=== PATIENT | female | born 1930 | race Caucasian/White ===

== ENCOUNTER 2016-06-17 08:54 | Emergency (ER) | payer OTHER ==
[2016-06-17] MEDS ORDERED: NS 1,000 ML IV ONE (09:27)
--- NOTE | 2016-06-17 09:29 | ED EKG INTERP ---
EKG Interpretation - EKG Time of EKG reading by physician:: 09:08 EKG Read and Signed by:: Hernandez Duvall EKG Interpretation (*Must complete 3 of following elements*): Normal Rate: 74 Rhythm: NSR Attestation - Scribe Verification/Attestation Scribe:: Nancy Davis Acting as Scribe for:: Hernandez Duvall Scribe documention review:: This chart was documented by a scribe and accurately reflects the service the provider performed and the decisions made by the provider.
--- NOTE | 2016-06-17 10:18 | PROVIDER DOCUMENTATION ---
Addendum entered and electronically signed by Hernandez Duvall MD 06/17/16 14:14: Additional Progress - ADDITIONAL PLAN OF CARE/RESULTS Additional Progress/Plan/Lab Results: I had lengthy discussion with pt for her CT reports regarding the b/l lacunar infarcts compared to 12/25 scan. I offered admission, but pt and son declined. Pt has no focal weakness and her dizziness resolving. Pt wants to go home and son mad an appointment with PCP before leaving ER. Pt was instructed to RTED if any worsening. Original Note: HPI-Syncope/Dizziness - General Source: patient, family - History of Present Illness-Syncope/Dizzy Recently Seen Here or By Another Healthcare Provider: No <Nancy Davis - Last Filed: 06/17/16 10:13> <Hernandez Duvall - Last Filed: 06/17/16 13:39> - General Chief Complaint: Dizziness Stated Complaint: DIZZINESS,NAUSEA,CANT WALK Time Seen by Provider: 06/17/16 09:04 Allergies/Adverse Reactions: Patient Allergies Allergy/AdvReac Type Severity Reaction Status Date / Time No Known Allergies Allergy Verified 06/17/16 10:29 Home Medications: Amlodipine [Norvasc] 10 mg PO DAILY 01/22/13 Carbamazepine Chew [Tegretol] 100 mg PO WLUNCH 01/22/13 Carbamazepine [Tegretol] 200 mg PO BID 01/22/13 Multivitamin [Multivitamins] 1 each PO DAILY 01/22/13 Omeprazole [Prilosec] 20 mg PO DAILY@0700 01/22/13 Simvastatin [Zocor] 20 mg PO QHS 01/22/13 Vitamin E 400 unit PO DAILY 01/22/13 - History of Present Illness-Syncope/Dizzy Nature of Presenting Problem: Pt is a 86 yof who came to the ED with a cc of dizziness. Pt reports she woke up this morning feeling dizzy and sick to her stomach. Pt reports she was unable to walk. Pt reports yesterday she was able to walk, cook, and drive. Pt has muscles spasms in her neck. Pt reports she is having neck pain. (Nancy Davis) Review of Systems - Adult - REVIEW OF SYSTEMS - ADULT Constitutional: denies: chills, fever Eyes: reports: no symptoms reported Ears, Nose, Mouth & Throat: denies: sinus problem, loose teeth Cardiovascular: reports: no symptoms reported Respiratory: denies: pleurisy, wheezing Gastrointestinal: reports: nausea. denies: abdominal pain, hematemesis, vomiting Genitourinary: reports: no symptoms reported Musculoskeletal: reports: no symptoms reported Integumentary: reports: no symptoms reported Neurological: reports: dizziness/vertigo, loss of balance. denies: paresthesia , slurred speech Psychiatric: denies: panic attacks, suicidal thoughts Endocrine: reports: no symptoms reported Hematologic/Lymphatic: reports: no symptoms reported Allergic/Immunologic: reports: no symptoms reported All Other Systems: Reviewed and Negative <Nancy Davis - Last Filed: 06/17/16 10:13> Past History - Adult - PAST MEDICAL HISTORY-ADULT Review of Records: reports: Old Records Reviewed, Nursing Assessment Review Major Childhood Illnesses: reports: denies history Cardiovascular: reports: HTN, hyperlipidemia Respiratory: reports: denies history Gastrointestinal: reports: GERD Obstetrical/Gynecological: reports: denies history Genitourinary: reports: denies history Musculoskeletal: reports: denies history Neurological: reports: denies history Endocrine/Immune: reports: denies history Other Conditions: reports: denies history - IMMUNIZATION STATUS Childhood Immunizations: See Nurse Assessment Flu Vaccine: See Nurse Assessment - FAMILY HISTORY Family History: reviewed, not pertinent <Nancy Davis - Last Filed: 06/17/16 10:13> Physical Exam-General - PHYSICAL EXAM-ADULT Initial Vital Signs Reviewed: Yes - CONSTITUTIONAL General Appearance: appears well, alert, no apparent distress - EYES Eyes: PERRL/EOMI, pink conjunctivae - HEAD, EARS, NOSE, MOUTH & THROAT HENMT: normocephalic/atraumatic, moist mucous membranes, normal ENT inspection - NECK Neck: non-tender, full range of motion, normal inspection - RESPIRATORY Respiratory: chest non-tender, lungs clear, normal breath sounds - CARDIOVASCULAR Cardiovascular: normal peripheral pulses, regular rate, rhythm, no edema - GASTROINTESTINAL (ABDOMEN) Abdominal Exam: normal bowel sounds, non tender, soft - LYMPHATIC Lymphatic: no adenopathy - MUSCULOSKELETAL Back Exam: normal inspection, no CVA tenderness, no vertebral tenderness Extremity: normal range of motion, non-tender, normal gait - SKIN Integumentary: normal color, normal turgor, warm/dry - NEUROLOGIC Neurologic: grossly normal, no motor/sensory deficits - PSYCHIATRIC Psych/Mental Status: normal mood/affect, normal thought content, normal thought process, oriented x 3 <Nancy Davis - Last Filed: 06/17/16 10:13> Progress <Nancy Davis - Last Filed: 06/17/16 10:13> - REASSESSMENT Reassessment #1 Status: improving <Hernandez Duvall X - Last Filed: 06/17/16 13:39> - PLAN OF CARE/RESULTS Progress/Plan/Lab Results: Vital Signs - 24 hr 06/17/16 08:59 Temperature 97.8 F Pulse Rate 83 Respiratory 20 Rate Blood Pressure 145/70 O2 Sat by Pulse 100 Oximetry Orders Category Date Time Status Cardiac Monitoring DIRECTED Care 06/17/16 09:27 Active Saline Loc NOW Care 06/17/16 09:27 Active CHEST-PORTABLE [RAD] Stat Exams 06/17/16 09:27 Taken CBC WITH ELECTRONIC DIFF [HEME] Stat Lab 06/17/16 09:27 Uncollected CK PROFILE [SP CHEM] Stat Lab 06/17/16 09:27 Uncollected COMPREHENSIVE METABOLIC PANEL [CHEM] Stat Lab 06/17/16 09:27 Uncollected MAGNESIUM [CHEM] Stat Lab 06/17/16 09:27 Uncollected PRO B-NATRIURETIC PEPTIDE Stat Lab 06/17/16 09:27 Uncollected PROTIME WITH INR [COAG] Stat Lab 06/17/16 09:27 Uncollected PTT [COAG] Stat Lab 06/17/16 09:27 Uncollected TROPONIN T Stat Lab 06/17/16 09:27 Uncollected UA NIMS W/REFLEX CULT [URINALYSIS] Stat Lab 06/17/16 09:27 Uncollected 0.9% Sodium Chloride Inj [Ns] 1,000 ml Med 06/17/16 09:27 Active IV 150 mls/hr EKG [EKG] Stat Ther 06/17/16 09:27 Ordered (Nancy Davis) Laboratory Results - last 24 hr 06/17/16 06/17/16 06/17/16 10:21 10:21 10:21 WBC 4.64 L RBC 4.06 L Hgb 13.0 Hct 36.4 L MCV 89.7 MCH 32.0 H MCHC 35.7 RDW Std Deviation 11.3 L Plt Count 309 MPV 9.1 Immature Gran % (Auto) 0.0 Neut % (Auto) 78.0 H Lymph % (Auto) 12.3 L [place] % (Auto) 8.4 Eos % (Auto) 0.4 Baso % (Auto) 0.9 H Immature Gran # (Auto) 0.00 Neut # (Auto) 3.62 Lymph # (Auto) 0.57 L [place] # (Auto) 0.39 Eos # (Auto) 0.02 Baso # (Auto) 0.04 PT INR PTT (Actin FS) Sodium 128 L Potassium 3.9 Chloride 87 L Carbon Dioxide 30 Anion Gap 11 BUN 6 L Creatinine 0.5 Estimated GFR/1.73 m2 > 60 BUN/Creatinine Ratio 12 Glucose 113 H Calculated Osmolality 256 Calcium 8.9 Magnesium 2.0 Total Bilirubin 0.45 AST 29 ALT 22 Alkaline Phosphatase 108 H Creatine Kinase 107 Troponin T Ski-I-Fuogrvyknlt Pept 131 Total Protein 6.7 Albumin 4.2 Globulin 2.5 Albumin/Globulin Ratio 1.7 Urine Source Urine Color Urine Turbidity Urine pH Ur Specific [place] Urine Protein Ur Glucose (Stick) Ur Ketones (Stick) Urine Blood Urine Nitrite Urine Bilirubin Urobilinogen Dipstick Urine Leukocytes Urine WBC (Auto) Urine RBC (Auto) U Epithel Cells (Auto) Urine Bacteria (Auto) 06/17/16 06/17/16 06/17/16 10:21 10:21 10:21 WBC RBC Hgb Hct MCV MCH MCHC RDW Std Deviation Plt Count MPV Immature Gran % (Auto) Neut % (Auto) Lymph % (Auto) [place] % (Auto) Eos % (Auto) Baso % (Auto) Immature Gran # (Auto) Neut # (Auto) Lymph # (Auto) [place] # (Auto) Eos # (Auto) Baso # (Auto) PT 10.5 INR 0.99 PTT (Actin FS) 23.0 Sodium Potassium Chloride Carbon Dioxide Anion Gap BUN Creatinine Estimated GFR/1.73 m2 BUN/Creatinine Ratio Glucose Calculated Osmolality Calcium Magnesium Total Bilirubin AST ALT Alkaline Phosphatase Creatine Kinase Troponin T < 0.010 Jmy-F-Epzlbkjasyi Pept Total Protein Albumin Globulin Albumin/Globulin Ratio Urine Source CLEAN CATCH Urine Color YELLOW Urine Turbidity CLEAR Urine pH 7.0 Ur Specific [place] 1.007 Urine Protein TRACE A Ur Glucose (Stick) NEGATIVE Ur Ketones (Stick) NEGATIVE Urine Blood SMALL A Urine Nitrite NEGATIVE Urine Bilirubin NEGATIVE Urobilinogen Dipstick NORMAL Urine Leukocytes NEGATIVE Urine WBC (Auto) <10 Urine RBC (Auto) 10-20 A U Epithel Cells (Auto) <10 Urine Bacteria (Auto) NEGATIVE 06/17/16 06/17/16 12:18 12:18 WBC RBC Hgb Hct MCV MCH MCHC RDW Std Deviation Plt Count MPV Immature Gran % (Auto) Neut % (Auto) Lymph % (Auto) [place] % (Auto) Eos % (Auto) Baso % (Auto) Immature Gran # (Auto) Neut # (Auto) Lymph # (Auto) [place] # (Auto) Eos # (Auto) Baso # (Auto) PT INR PTT (Actin FS) Sodium Potassium Chloride Carbon Dioxide Anion Gap BUN Creatinine Estimated GFR/1.73 m2 BUN/Creatinine Ratio Glucose Calculated Osmolality Calcium Magnesium Total Bilirubin AST ALT Alkaline Phosphatase Creatine Kinase 105 Troponin T < 0.010 Xjq-C-Jxmmaqacpyl Pept Total Protein Albumin Globulin Albumin/Globulin Ratio Urine Source Urine Color Urine Turbidity Urine pH Ur Specific [place] Urine Protein Ur Glucose (Stick) Ur Ketones (Stick) Urine Blood Urine Nitrite Urine Bilirubin Urobilinogen Dipstick Urine Leukocytes Urine WBC (Auto) Urine RBC (Auto) U Epithel Cells (Auto) Urine Bacteria (Auto) Orders Category Date Time Status Cardiac Monitoring DIRECTED Care 06/17/16 09:27 Active Saline Loc NOW Care 06/17/16 09:27 Active CHEST-PORTABLE [RAD] Stat Exams 06/17/16 09:27 Completed HEAD W/O CONTRAST [CT] Stat Exams 06/17/16 11:53 Taken CBC WITH ELECTRONIC DIFF [HEME] Stat Lab 06/17/16 10:21 Completed CK PROFILE [SP CHEM] Stat Lab 06/17/16 10:21 Completed CK PROFILE [SP CHEM] Stat Lab 06/17/16 12:18 Completed COMPREHENSIVE METABOLIC PANEL [CHEM] Stat Lab 06/17/16 10:21 Completed MAGNESIUM [CHEM] Stat Lab 06/17/16 10:21 Completed PRO B-NATRIURETIC PEPTIDE Stat Lab 06/17/16 10:21 Completed PROTIME WITH INR [COAG] Stat Lab 06/17/16 10:21 Completed PTT [COAG] Stat Lab 06/17/16 10:21 Completed TROPONIN T Stat Lab 06/17/16 10:21 Completed TROPONIN T Stat Lab 06/17/16 12:18 Completed UA NIMS W/REFLEX CULT [URINALYSIS] Stat Lab 06/17/16 10:21 Completed 0.9% Sodium Chloride Inj [Ns] 1,000 ml Med 06/17/16 09:27 Active IV 150 mls/hr Meclizine [Antivert] Med 06/17/16 11:53 Discontinued 25 mg PO NOW ONE Ondansetron [Zofran] Med 06/17/16 11:53 Discontinued 4 mg IV NOW ONE EKG [EKG] Stat Ther 06/17/16 09:27 Draft Vital Signs Temp Pulse Resp BP Pulse Ox 06/17/16 11:48 74 20 164/58 100 06/17/16 08:59 97.8 F 83 20 145/70 100 No Known Allergies Allergy (Verified 06/17/16 10:29) Amlodipine [Norvasc] 10 mg PO DAILY 01/22/13 Carbamazepine Chew [Tegretol] 100 mg PO WLUNCH 01/22/13 Carbamazepine [Tegretol] 200 mg PO BID 01/22/13 Multivitamin [Multivitamins] 1 each PO DAILY 01/22/13 Omeprazole [Prilosec] 20 mg PO DAILY@0700 01/22/13 Simvastatin [Zocor] 20 mg PO QHS 01/22/13 Vitamin E 400 unit PO DAILY 01/22/13 I&O 06/16/16 06/17/16 06/18/16 06:59 06:59 06:59 Output Total 100 Balance -100 Laboratory 06/17/16 06/17/16 06/17/16 12:18 12:18 10:21 WBC RBC Hgb Hct MCV MCH MCHC RDW Std Deviation Plt Count MPV Immature Gran % (Auto) Neut % (Auto) Lymph % (Auto) [place] % (Auto) Eos % (Auto) Baso % (Auto) Immature Gran # (Auto) Neut # (Auto) Lymph # (Auto) [place] # (Auto) Eos # (Auto) Baso # (Auto) PT INR PTT (Actin FS) Sodium Potassium Chloride Carbon Dioxide Anion Gap BUN Creatinine Estimated GFR/1.73 m2 BUN/Creatinine Ratio Glucose Calculated Osmolality Calcium Magnesium Total Bilirubin AST ALT Alkaline Phosphatase Creatine Kinase 105 Troponin T < 0.010 Swm-Y-Betcxoatfye Pept Total Protein Albumin Globulin Albumin/Globulin Ratio Urine Source CLEAN CATCH Urine Color YELLOW Urine Turbidity CLEAR Urine pH 7.0 Ur Specific [place] 1.007 Urine Protein TRACE A Ur Glucose (Stick) NEGATIVE Ur Ketones (Stick) NEGATIVE Urine Blood SMALL A Urine Nitrite NEGATIVE Urine Bilirubin NEGATIVE Urobilinogen Dipstick NORMAL Urine Leukocytes NEGATIVE Urine WBC (Auto) <10 Urine RBC (Auto) 10-20 A U Epithel Cells (Auto) <10 Urine Bacteria (Auto) NEGATIVE 06/17/16 06/17/16 06/17/16 10:21 10:21 10:21 WBC RBC Hgb Hct MCV MCH MCHC RDW Std Deviation Plt Count MPV Immature Gran % (Auto) Neut % (Auto) Lymph % (Auto) [place] % (Auto) Eos % (Auto) Baso % (Auto) Immature Gran # (Auto) Neut # (Auto) Lymph # (Auto) [place] # (Auto) Eos # (Auto) Baso # (Auto) PT 10.5 INR 0.99 PTT (Actin FS) 23.0 Sodium Potassium Chloride Carbon Dioxide Anion Gap BUN Creatinine Estimated GFR/1.73 m2 BUN/Creatinine Ratio Glucose Calculated Osmolality Calcium Magnesium Total Bilirubin AST ALT Alkaline Phosphatase Creatine Kinase Troponin T < 0.010 Uhb-C-Oqjywfvqerq Pept 131 Total Protein Albumin Globulin Albumin/Globulin Ratio Urine Source Urine Color Urine Turbidity Urine pH Ur Specific [place] Urine Protein Ur Glucose (Stick) Ur Ketones (Stick) Urine Blood Urine Nitrite Urine Bilirubin Urobilinogen Dipstick Urine Leukocytes Urine WBC (Auto) Urine RBC (Auto) U Epithel Cells (Auto) Urine Bacteria (Auto) 06/17/16 06/17/16 10:21 10:21 WBC 4.64 L RBC 4.06 L Hgb 13.0 Hct 36.4 L MCV 89.7 MCH 32.0 H MCHC 35.7 RDW Std Deviation 11.3 L Plt Count 309 MPV 9.1 Immature Gran % (Auto) 0.0 Neut % (Auto) 78.0 H Lymph % (Auto) 12.3 L [place] % (Auto) 8.4 Eos % (Auto) 0.4 Baso % (Auto) 0.9 H Immature Gran # (Auto) 0.00 Neut # (Auto) 3.62 Lymph # (Auto) 0.57 L [place] # (Auto) 0.39 Eos # (Auto) 0.02 Baso # (Auto) 0.04 PT INR PTT (Actin FS) Sodium 128 L Potassium 3.9 Chloride 87 L Carbon Dioxide 30 Anion Gap 11 BUN 6 L Creatinine 0.5 Estimated GFR/1.73 m2 > 60 BUN/Creatinine Ratio 12 Glucose 113 H Calculated Osmolality 256 Calcium 8.9 Magnesium 2.0 Total Bilirubin 0.45 AST 29 ALT 22 Alkaline Phosphatase 108 H Creatine Kinase 107 Troponin T Vuc-A-Zrkuubypcij Pept Total Protein 6.7 Albumin 4.2 Globulin 2.5 Albumin/Globulin Ratio 1.7 Urine Source Urine Color Urine Turbidity Urine pH Ur Specific [place] Urine Protein Ur Glucose (Stick) Ur Ketones (Stick) Urine Blood Urine Nitrite Urine Bilirubin Urobilinogen Dipstick Urine Leukocytes Urine WBC (Auto) Urine RBC (Auto) U Epithel Cells (Auto) Urine Bacteria (Auto) (Hernandez Duvall) Departure <Nancy Davis - Last Filed: 06/17/16 10:13> - Departure Time of Disposition Order: 13:36 Certified Medical Emergency: Emergent <Hernandez Duvall - Last Filed: 06/17/16 13:39> - Departure DIAGNOSIS: Dizziness, Atypical chest pain Disposition: HOME 01 Condition: Stable Additional Instructions: Follow up with regular MD in 2-3 days. Return to ER if your symptoms worsen. Prescriptions: Meclizine HCl [Antivert] 25 mg PO TID PRN #20 tablet PRN Reason: Dizziness Ondansetron [Zofran Odt] 4 mg PO TID PRN #10 tab.rapdis PRN Reason: Nausea And Vomiting Referrals: Ada Arizmendi MD [Primary Care Provider] - Attestation - Scribe Verification/Attestation Scribe:: Nancy Davis Acting as Scribe for:: Hernandez Duvall Scribe documention review:: This chart was documented by a scribe and accurately reflects the service the provider performed and the decisions made by the provider. <Nancy Davis - Last Filed: 06/17/16 10:13> Physician Attestation
--- NOTE | 2016-06-17 10:29 | Diag Imaging Result Document ---
PROCEDURE NAME: CHEST-PORTABLE - 06/17/2016 ERECT AP PORTABLE CHEST: TIME: 0940 hours. FINDINGS: There are old rib fractures on the right. The heart size and pulmonary vascularity are within normal limits. There is a hiatal hernia. Compare to 01/05/2105, there has been no significant change in the appearance of the chest. IMPRESSION: No acute disease.
[2016-06-17 10:30] LABS: MANUAL DIFF NEEDED? NO; URINE CULTURE NEEDED? NO; URINE MICRO REVIEW NEEDED? NO; URINE SOURCE CLEAN CATCH
[2016-06-17 10:34] LABS: BILIRUBIN URINE NEGATIVE (NEGATIVE); BLOOD URINE SMALL (NEGATIVE); COLOR YELLOW; GLUCOSE URINE NEGATIVE (NEGATIVE); LEUKOCYTES URINE NEGATIVE (NEGATIVE); NITRITE URINE NEGATIVE (NEGATIVE); PROTEIN URINE TRACE mg/dL (NEGATIVE); SP GRAVITY URINE 1.007; TURBIDITY URINE CLEAR (CLEAR); UROBILINOGEN URINE NORMAL (NORMAL)
[2016-06-17 10:35] LABS: BASO% 0.9 % (0.0-0.8); EOS# 0.02 X1000 (0.0-0.7); EOS% 0.4 % (0.0-10.0); HEMATOCRIT 36.4 % (37.0-47.0); LYMPH# 0.57 X1000 (1.2-3.4); LYMPH% 12.3 % (20.5-51.1); MCHC 35.7 g/dL (33-37); MCV 89.7 FL (81-99); MONO# 0.39 X1000 (0.11-0.59); MONO% 8.4 % (1.7-9.3); MPV 9.1 FL (7.4-10.4); PLT 309 X1000 (130-400); RBC 4.06 XMIL (4.2-5.4); UR EPITHELIAL CELLS <10 /HPF (<10); URINE BACTERIA NEGATIVE /HPF; URINE WBC <10 /HPF (<10)
[2016-06-17 10:42] LABS: INR 0.99; PROTIME 10.5 Seconds (9.2-11.7)
[2016-06-17 11:05] LABS: AGAP 11; ALBUMIN 4.2 g/dL (3.5-5.0); ALKALINE PHOSPHATASE 108 U/L (32-104); BUN 6 mg/dL (8-22); CALCIUM 8.9 mg/dL (8.8-10.2); CHLORIDE 87 mmol/L (98-107); CK PROFILE 107 U/L (24-173); COSMO 256; GOT 29 U/L (10-30); GPT 22 U/L (10-36); POTASSIUM 3.9 mmol/L (3.5-5.1); SODIUM 128 mmol/L (136-145); TCO2 30 mmol/L (25-35); TOTAL BILIRUBIN 0.45 mg/dL (0.20-1.00); TOTAL PROTEIN 6.7 g/dL (6.3-8.3)
[2016-06-17 11:48] VITALS: BP 164/58
[2016-06-17] MEDS ORDERED: ANTIVERT PO ONE (11:53)
[2016-06-17] MEDS ORDERED: ZOFRAN IV ONE (11:53)
--- NOTE | 2016-06-17 13:25 | EKG Report ---
Test Performed on : 06/17/2016 09:08:57 AM Test Reason : Chest Pain Blood Pressure : / mmHG Vent. Rate : 074 BPM Atrial Rate : 074 BPM P-R Int : 120 ms QRS Dur : 070 ms QT Int : 384 ms P-R-T Axes : 005 011 023 degrees QTc Int : 426 ms Normal sinus rhythm. Normal ECG When compared with ECG of 18-JAN-2013 16:10, No significant change was found Unconfirmed Result
--- NOTE | 2016-06-17 14:10 | Diag Imaging Result Document ---
PROCEDURE NAME: HEAD W/O CONTRAST - 06/17/[address] SCAN OF THE BRAIN: COMPARISON: 01/05/2015. INDICATION: Dizziness. Colon cancer. FINDINGS: There is diffuse cerebral atrophy. There is a hypodensity within the deep white matter nonspecific in appearance but likely related to microvascular disease. There are small punctate hypodensities within the periventricular deep white matter bilaterally new from the prior study which may represent interval small lacunar infarcts. There is no acute hemorrhage. No midline shift or mass effect. There is no hydrocephalus. IMPRESSION: 1. Atrophy and microvascular disease. 2. Possible bilateral punctate lacunar infarcts new from the prior examination. [facility]
[2016-06-17 14:24] LABS: URINE SOURCE CLEAN CATCH
[2016-06-17 14:28] LABS: BILIRUBIN URINE NEGATIVE (NEGATIVE); BLOOD URINE SMALL (NEGATIVE); CLARITY CLEAR (CLEAR); COLOR YELLOW; GLUCOSE URINE NEGATIVE (NEGATIVE); LEUKOCYTES URINE NEGATIVE (NEGATIVE); NITRITE URINE NEGATIVE (NEGATIVE); PH URINE 7.5; PROTEIN URINE NEGATIVE (NEGATIVE); UROBILINOGEN URINE 0.2 EU/dL (0.2-1.0)
[2016-06-17 15:11] LABS: URINE CULTURE NEEDED? NO; URINE EPITHELIAL CELLS <10 /HPF (<10); URINE RBC <10 /HPF (<10)
== END 2016-06-17 14:50 | disposition home or self-care (01) ==
LOC: ED 08:54
DX: R07.89 Other chest pain (principal); R42 Dizziness and giddiness; R26.81 Unsteadiness on feet; R11.0 Nausea; I10 Essential (primary) hypertension; E78.5 Hyperlipidemia, unspecified; K21.9 Gastro-esophageal reflux disease without esophagitis; Z79.899 Other long term (current) drug therapy
CPT/HCPCS: 70450; 71010; 80053; 81001; 82550; 82948; 83735; 83880; 84484; 85025; 85610; 85730; 93005; 96374; J2405; J7030

== ENCOUNTER 2017-01-15 08:41 | Inpatient (IN) ==
[2017-01-15] MEDS ORDERED: ZOFRAN IV ONE (09:09)
[2017-01-15] MEDS ORDERED: MORPHINE IV ONE ×2 (09:09→10:41)
[2017-01-15] MEDS ORDERED: NS 1,000 ML IV ONE (09:09)
--- NOTE | 2017-01-15 10:04 | Diag Imaging Result Doc PS360 ---
EXAM: HEAD W/O CONTRAST - 01/15/2017 HISTORY: Fall TECHNIQUE: Dose reduction protocol COMPARISON: 06/17/2016 FINDINGS: There are mild atrophic changes and mild chronic microvascular ischemic changes. There is no evidence of intracranial hemorrhage, mass effect, midline shift, or hydrocephalus. There is no evidence of recent infarct, although acute infarcts may not be immediately visible. There is no evidence of skull fracture. There is right mastoid air cell effusion noted. IMPRESSION: No evidence of intracranial injury. There is right mastoid air cell effusion noted. Electronically signed by Gregorio Puente 01/15/2017 10:02 AM
--- NOTE | 2017-01-15 10:14 | Diag Imaging Result Doc PS360 ---
EXAM: XRAY PELVIS W/HIP 2-3VW RT - 01/15/2017 HISTORY: Fall TECHNIQUE: Right hip and pelvis three views COMPARISON: None. FINDINGS: There is a comminuted intertrochanteric and subtrochanteric fracture of the right femur. The main distal fragment is medially displaced relative to the proximal fragment by approximately 2.8 cm, and there is some overriding of fragments. There is no dislocation identified. IMPRESSION: Intertrochanteric and subtrochanteric fracture of right femur with comminution and displacement. Electronically signed by Gregorio Puente 01/15/2017 10:12 AM
--- NOTE | 2017-01-15 10:17 | Diag Imaging Result Doc PS360 ---
EXAM: CHEST-PORTABLE - 01/15/2017 HISTORY: Fall TECHNIQUE: Portable chest 0945 COMPARISON: 06/17/2016 FINDINGS: Heart size is within normal limits. There is a round retrocardiac density consistent with moderate size hiatal hernia. The lungs appear clear. There is no pleural effusion or pneumothorax verified. There are old fracture deformities of right mid ribs noted. IMPRESSION: Moderate size hiatal hernia. No evidence of acute disease. Electronically signed by Gregorio Puente 01/15/2017 10:15 AM
--- NOTE | 2017-01-15 10:31 | PROVIDER DOCUMENTATION ---
This chart was entered by Nancy Davis Scribe, acting as scribe for Hernandez Duvall MD. HPI-Musculoskeletal Pain/Inj - GENERAL Stated Complaint: HIP PAIN Time Seen by Provider: 01/15/17 08:49 - HX OF PRESENT ILLNESS-MUSKULOSKELTAL Nature of Presenting Problem: Pt is a 86 year old female who came to the ED with a cc of falling in her drive way this morning while getting the mail. Pt reports she was unable to get up when she fell and called 911. Pt reports she fell on her right side and hit her head. Pt denies LOC. Pt right hip is laterally rotated and shortened and pt has a hematoma on the back of her head. Quality of Pain: reports: sharp Severity in ED: mild Onset/Duration: just prior to arrival Timing: still present Any recent injury?: Yes Locality of Occurance: Home Similar Symptoms Previously?: No Recently seen or treated by another doctor?: No - FALL INJURY Location of Pain/Injury: reports: lower extremity (right hip) Reason for Fall: reports: slipped Loss of Consciousness: no loss of consciousness Review of Systems - Adult - REVIEW OF SYSTEMS - ADULT Constitutional: denies: chills, fever Eyes: reports: no symptoms reported Ears, Nose, Mouth & Throat: denies: ear pain, nose pain Cardiovascular: denies: chest pain, syncope Respiratory: reports: no symptoms reported Gastrointestinal: reports: no symptoms reported Genitourinary: reports: no symptoms reported Musculoskeletal: reports: bone pain (hip pain). denies: joint pain, joint swelling Integumentary: reports: no symptoms reported Neurological: reports: no symptoms reported Psychiatric: reports: no symptoms reported Endocrine: reports: no symptoms reported Hematologic/Lymphatic: reports: no symptoms reported Allergic/Immunologic: reports: no symptoms reported All Other Systems: Reviewed and Negative Past History - Adult - PAST MEDICAL HISTORY-ADULT Review of Records: reports: Old Records Reviewed, Nursing Assessment Review Major Childhood Illnesses: reports: denies history Cardiovascular: reports: HTN, hyperlipidemia Respiratory: reports: denies history Gastrointestinal: reports: GERD Obstetrical/Gynecological: reports: denies history Genitourinary: reports: denies history Musculoskeletal: reports: denies history Neurological: reports: denies history Endocrine/Immune: reports: denies history Other Conditions: reports: denies history - IMMUNIZATION STATUS Childhood Immunizations: See Nurse Assessment Flu Vaccine: See Nurse Assessment - FAMILY HISTORY Family History: reviewed, not pertinent Physical Exam-Injury Related - Physical Exam-Injury Related Initial Vital Signs Reviewed: Yes General Appearance: alert, moderate distress Eyes: PERRL/EOMI, pink conjunctivae Head, Ears, Nose, Mouth & Throat: normocephalic/atraumatic, moist mucous membranes, other (hematoma on the right occipital area) Neck: non-tender, full range of motion Respiratory: chest non-tender, lungs clear Cardiovascular: normal peripheral pulses, regular rate, rhythm Abdominal Exam: normal bowel sounds, non tender, soft Back Exam: normal inspection, no CVA tenderness Extremity: normal capillary refill, deformity (right leg laterally rotated and shortened), tenderness. negative: normal gait Integumentary: normal color, warm/dry Neurologic: grossly normal Psych/Mental Status: normal mood/affect, normal thought content, normal thought process, oriented x 3 - Glascow Coma Score Best Eye Response (Noah): (4) open spontaneously Best Verbal Response ([place]): (5) oriented Best Motor Response (Noah): (6) obeys commands Noah Total: 15 Progress - PLAN OF CARE/RESULTS Progress/Plan/Lab Results: Vital Signs - 8 hr 01/15/17 08:45 Temperature 97 F L Pulse Rate 69 Respiratory Rate 18 Blood Pressure 124/65 O2 Sat by Pulse Oximetry 95 Orders Category Date Time Status Cardiac Monitoring DIRECTED Care 01/15/17 09:09 Active Raymond Cath Insertion ORDERED Care 01/15/17 09:09 Active Saline Loc NOW Care 01/15/17 09:09 Active CHEST-PORTABLE [RAD] Stat Exams 01/15/17 09:09 Completed HEAD W/O CONTRAST [CT] Stat Exams 01/15/17 09:12 Completed XRAY PELVIS W/HIP 2-3VW RT [RAD] Stat Exams 01/15/17 09:33 Completed CBC WITH ELECTRONIC DIFF [HEME] Stat Lab 01/15/17 09:09 Uncollected CK PROFILE [SP CHEM] Stat Lab 01/15/17 09:09 Uncollected COMPREHENSIVE METABOLIC PANEL [CHEM] Stat Lab 01/15/17 09:09 Uncollected MAGNESIUM [CHEM] Stat Lab 01/15/17 09:09 Uncollected PRO B-NATRIURETIC PEPTIDE Stat Lab 01/15/17 09:09 Uncollected PROTIME WITH INR [COAG] Stat Lab 01/15/17 09:09 Uncollected PTT [COAG] Stat Lab 01/15/17 09:09 Uncollected TROPONIN T Stat Lab 01/15/17 09:09 Uncollected UA NIMS W/REFLEX CULT [URINALYSIS] Stat Lab 01/15/17 09:09 Uncollected 0.9% Sodium Chloride Inj [Ns] 1,000 ml Med 01/15/17 09:09 Active IV 150 mls/hr Morphine Med 01/15/17 09:09 Discontinued 4 mg IV NOW ONE Ondansetron [Zofran] Med 01/15/17 09:09 Discontinued 4 mg IV NOW ONE EKG [EKG] Stat Ther 01/15/17 09:09 Ordered - XRAY 1 XRAY Study: Pelvis (intertrochanteric and subtrochanteric fracture of right femur with comminution and displacement) 2 XRAY Study: Chest (moderate size hiatal hernia. no evidence of acute disease) Impression: Normal XRAY Interpretation: R hip X-ray, R hip intertrochatary fx. - CT/MRI 1 CT Study: Head (no evidence of intracranial injury. there is right mastoid air cell effusion noted.) Impression: Normal - CONSULTS/PCP/HOSPITALIST Notification #1 *Consult/PCP/Hospitalist*: Dr. Sutherland and Dr. Sweeney Time Discussed: 10:29 Reason/Comments: Dr. Sweeney will book for surgery tomorrow Consult Disposition: Admit Departure - Departure Date of Disposition Decision: 01/15/17 Time of Disposition Decision: 10:30 DIAGNOSIS: Closed right hip fracture Disposition: ADMITTED INPATIENT 09 Certified Medical Emergency: Emergent Condition: Stable Referrals and Follow-Ups: Ada Arizmendi MD [Primary Care Provider] - - Critical Care Note This patient required my direct & personal management of CC.: No Attestation - Physician/ BIGG Attestation Patient care was provided by Advanced Practice Provider:: No The physician spent face to face time with patient:: Yes Advanced Practice Provider documentation review:: Supervising physician onsite and consulted in the evaluation and care of this patient. The physician did have a face to face encounter with the patient. This chart was documented by the indicated scribe, (Nancy Davis Scribe) and accurately reflects the services I performed and decisions made by me, Hernandez Duvall MD, as attested by the provider's signature.
[2017-01-15 10:42] LABS: MANUAL DIFF NEEDED? NO; URINE CULTURE NEEDED? NO; URINE MICRO REVIEW NEEDED? NO; URINE SOURCE CATH
[2017-01-15 10:51] LABS: BASO% 0.2 % (0.0-0.8); EOS# 0.09 X1000 (0.0-0.7); EOS% 1.1 % (0.0-10.0); HEMATOCRIT 33.6 % (37.0-47.0); HEMOGLOBIN 11.9 g/dL (12.0-16.0); IMM GRAN# 0.02 X1000 (0.0-0.04); IMM GRAN% 0.2 % (0.0-0.5); LYMPH# 1.13 X1000 (1.2-3.4); LYMPH% 13.5 % (20.5-51.1); MCH 32.4 PG (27-31); MCHC 35.4 g/dL (33-37); MCV 91.6 FL (81-99); MONO# 0.62 X1000 (0.11-0.59); MONO% 7.4 % (1.7-9.3); MPV 9.2 FL (7.4-10.4); NEUT% 77.6 % (42.2-75.2); PLT 300 X1000 (130-400); RBC 3.67 XMIL (4.2-5.4)
[2017-01-15 10:52] LABS: BILIRUBIN URINE NEGATIVE (NEGATIVE); BLOOD URINE NEGATIVE (NEGATIVE); COLOR STRAW; GLUCOSE URINE NEGATIVE (NEGATIVE); LEUKOCYTES URINE NEGATIVE (NEGATIVE); NITRITE URINE NEGATIVE (NEGATIVE); PH URINE 7.5; PROTEIN URINE NEGATIVE (NEGATIVE); SP GRAVITY URINE 1.003; TURBIDITY URINE CLEAR (CLEAR); UROBILINOGEN URINE NORMAL (NORMAL)
[2017-01-15 10:53] LABS: UR EPITHELIAL CELLS <10 /HPF (<10); URINE BACTERIA NEGATIVE /HPF; URINE RBC <10 /HPF (<10); URINE WBC <10 /HPF (<10)
[2017-01-15 11:09] LABS: INR 0.99; PROTIME 10.4 Seconds (9.2-11.7); PTT 21.9 Seconds (22.0-36.0)
[2017-01-15] MEDS ORDERED: HALDOL IV PRN (13:19)
[2017-01-15] MEDS ORDERED: MORPHINE IV PRN (13:19)
[2017-01-15] MEDS: TYLENOL PO SCH ×2 (14:11→21:32)
[2017-01-15] MEDS: OXY IR PO PRN ×2 (14:11→18:09)
[2017-01-15] MEDS: TEGRETOL PO SCH ×2 (14:11→21:32)
[2017-01-15] MEDS: LR 1,000 ML IV SCH ×2 (14:12→21:34)
[2017-01-15] MEDS: MORPHINE IV PRN ×2 (15:50→21:32)
[2017-01-15 17:29] LABS: AGAP 17; ALBUMIN 3.5 g/dL (3.5-5.0); ALKALINE PHOSPHATASE 97 U/L (32-104); BUN 11 mg/dL (8-22); CALCIUM 8.4 mg/dL (8.8-10.2); CHLORIDE 91 mmol/L (98-107); CK PROFILE 157 U/L (24-173); COSMO 269; GOT 28 U/L (10-30); GPT 26 U/L (10-36); MAGNESIUM 1.9 mg/dL (1.5-2.7); POTASSIUM 4.3 mmol/L (3.5-5.1); SODIUM 133 mmol/L (136-145); TCO2 25 mmol/L (25-35); TOTAL BILIRUBIN 0.41 mg/dL (0.20-1.00); TOTAL PROTEIN 5.4 g/dL (6.3-8.3)
--- NOTE | 2017-01-15 18:13 | HISTORY AND PHYSICAL ---
Admitted to Heber Arizmendi MD by Sidney Sutherland Jr., MD. CHIEF COMPLAINT: Fell and hurt right hip. HISTORY OF PRESENT ILLNESS: The patient is an 86-year-old, relatively healthy, white female who was walking out on her drive when she bent over and fell down. She did hit her head slightly, but hit on her hip for the most part, was brought to the emergency room and she has a surgical neck fracture of the right hip. She did not lose consciousness and has never broken a bone before. PAST HISTORY: Trigeminal neuralgia on the left side for which she takes Tegretol, hypertension, and she had colon cancer 4 or 5 years ago and was operated on by Dr. Starr for that. GERD. ALLERGIES: She has no known allergies. SOCIAL HISTORY: Does not use alcohol or tobacco at present. REVIEW OF SYSTEMS: Neurological: Denies headaches, seizures, visual problems, hearing problems. Does have trigeminal neuralgia on the left that she takes Tegretol for. He has tried other medicines without success. Pulmonary: Denies cough, wheezing, dyspnea. Cardiovascular: Denies chest pain, heart palpitations, PND, orthopnea. GI: Denies abdominal pain except for a little queasiness since she has had some morphine. Does have GERD symptomatology for which she takes Prilosec. So and GERD is another diagnosis denies any rectal bleeding. Has a past history of colon cancer for which she only had to have surgery. : Denies any difficulty with urination. Musculoskeletal: See present illness for fractured right hip. Denies any other musculoskeletal problems. Integument: Denies any skin lesions. Psychiatric: Denies depression or anxiety. INVESTIGATIVE DATA: X-ray of right hip shows fracture. White count 8370, hemoglobin 11.9. INR is 0.99. Troponin less than 0.010. Urinalysis essentially normal. CMP is pending. Magnesium pending. ProBNP is pending. These were ordered through the emergency room. PLAN: We will admit and try to keep comfortable. I have consulted Orthopedics who plans surgery tomorrow. cc: MD Daquan Gutierrez Jr, MD
--- NOTE | 2017-01-15 19:14 | CONSULTATION ---
DATE OF CONSULTATION: 01/15/2017 CHIEF COMPLAINT: Right hip pain. HISTORY OF PRESENT ILLNESS: Ms. Blue is an 86-year-old female who was going out to get her paper this morning when she fell and landed on this right hip. She denies any head trauma. She has complained of a lot of right hip pain. She was unable to ambulate after that. The brought her to the ER where they diagnosed her with hip fracture and Orthopedics was consulted. Most her pain is just in the right hip. She is not really complaining of any pain in the left lower extremity or bilateral upper extremities. PAST MEDICAL HISTORY: Hypertension. Trigeminal neuralgia. Reflux. PAST SURGICAL HISTORY: Hemorrhoidectomy. Gamma knife for her trigeminal neuralgia. Breast biopsies. ALLERGIES: No known drug allergies. HOME MEDICATIONS: Per the medical chart. SOCIAL HISTORY: She is and denies any alcohol or tobacco use. FAMILY HISTORY: Positive for throat cancer. REVIEW OF SYSTEMS: Positive for this right hip pain. All other systems are essentially negative. PHYSICAL EXAMINATION: General: Elderly appearing female, in no acute distress. HEENT: Head and neck normocephalic, atraumatic. Respirations: Nonlabored breathing. Cardiovascular: Regular rate. Abdomen: Nondistended. Extremities: Shortened and a little bit externally rotated on the right lower extremity. She has 2+ DP and PT pulses. Good sensation light touch to all the toes and she can dorsiflex and plantarflex the ankle and toes very well. No tenderness to palpation at the knee. She does have some tenderness to palpation at the hip. No tenderness to palpation to the left lower extremity. RADIOGRAPHS: Pelvis and right hip views were obtained which show an intertrochanteric/subtrochanteric femur fracture with displacement. ASSESSMENT: Right intertrochanteric and subtrochanteric femur fracture. PLAN: I discussed with Ms. Blue and her family about the x-rays. Unfortunately she has a lot of displacement there. I would recommend surgical intervention which would be right femur trochanteric femoral nailing. I went over with them the procedure, risks, benefits, potential complications. Risks include, but are not limited to, infection, wound healing problems, damage to nerves, arteries, veins, numbness, malunion, nonunion, hardware related issues, continued pain, DVT and anesthesia related risks. After discussing these with the patient, she expressed understanding and wished to proceed. She will be admitted per the hospitalist service. We will get everything set up for tomorrow. She will be NPO after midnight. cc: MD Daquan De Anda MD
[2017-01-15] MEDS: ZOFRAN IV PRN (21:31)
[2017-01-15] MEDS: ZOCOR PO SCH (21:31)
[2017-01-15] MEDS: LOPRESSOR PO SCH (21:33)
[2017-01-16] MEDS: MORPHINE IV PRN ×2 (02:40→10:27)
[2017-01-16] MEDS: ZOFRAN IV PRN ×5 (02:40→20:57)
[2017-01-16] MEDS: LR 1,000 ML IV SCH (02:59)
[2017-01-16] MEDS: TYLENOL PO SCH ×4 (06:39→23:59)
[2017-01-16] MEDS: PRILOSEC PO SCH (06:39)
--- NOTE | 2017-01-16 07:18 | EKG Report ---
Test Performed on : 01/15/2017 10:47:21 AM Test Reason : Chest Pain Blood Pressure : / mmHG Vent. Rate : 066 BPM Atrial Rate : 066 BPM P-R Int : 140 ms QRS Dur : 068 ms QT Int : 420 ms P-R-T Axes : 049 057 036 degrees QTc Int : 440 ms Normal sinus rhythm. Normal ECG When compared with ECG of 17-JUN-2016 09:08, No significant change was found Unconfirmed Result
--- NOTE | 2017-01-16 08:46 | PROGRESS NOTE ---
DATE: 01/16/2017 SUBJECTIVE: Interval history was reviewed. The patient was admitted yesterday by Dr. Sutherland after she fell at home. While she was going to the mailbox, sustained injury to the right side of the head and the right hip. She was diagnosed with a right hip fracture. Patient was seen by orthopedic consult, Dr. Sweeney, who is going to operate this afternoon. REVIEW OF SYSTEMS: General: Complaints of nausea. HEENT: No headache. No vision problems. Cardiopulmonary: No chest pain, shortness of breath, PND, orthopnea. GI: Slightly nauseous. No vomiting. Extremities: Pain in the right hip. Genitalia: Raymond catheter was in. PAST MEDICAL HISTORY: Reviewed. PAST SURGICAL HISTORY: Reviewed. MEDICINES: Reviewed. PHYSICAL EXAMINATION: Vital Signs: Low-grade fever. Vital signs are stable. Blood pressure is 126/54. HEENT Examination: No external bruises noted on the right head. Pupils equal, reactive to light. Neck: Supple. Chest: Clear. Heart: Heart sounds are regular. Abdomen: Belly is soft, nontender. Good bowel sounds. Genitalia: Raymond catheter was placed. Musculoskeletal: Right hip was in Iniguez's traction. It was externally rotated and shortened. Investigations: CBC: White cell count 8.3, hematocrit 33, platelets 300,000. PT/INR is normal. SMA 7: Sodium 133, potassium 4.2, chloride 91, BUN 11, creatinine 0.6, glucose 150, magnesium 1.9. Cardiac enzymes and troponin were normal. Urinalysis is clear. Tegretol level is 8.1. ASSESSMENT AND PLAN: 1. Right hip fracture. Waiting for nailing. 2. Nausea. We will use Zofran. 3. Trigeminal neuralgia, on Tegretol. 4. Pain control with morphine as needed. 5. Gastrointestinal prophylaxis with Prilosec. 6. Hypertension, on amlodipine and metoprolol. 7. Hyperlipidemia, on simvastatin. 8. Repeat the labs in the morning LEVEL OF DOCUMENTATION: 35 minutes. cc: Daquan Arizmendi MD
[2017-01-16] MEDS ORDERED: NORVASC PO SCH (09:00)
[2017-01-16] MEDS: TEGRETOL PO SCH ×3 (09:44→20:58)
[2017-01-16] MEDS: LOPRESSOR PO SCH ×2 (09:48→21:00)
[2017-01-16] MEDS: THERA M PLUS PO SCH (09:49)
[2017-01-16] MEDS: VITAMIN E PO SCH (09:49)
[2017-01-16] MEDS ORDERED: XYLOCAINE-MPF 2% ONE (11:20)
[2017-01-16] MEDS ORDERED: DIPRIVAN 1% ONE (11:20)
[2017-01-16] MEDS ORDERED: NEO-SYNEPHRINE ONE (11:20)
[2017-01-16] MEDS ORDERED: NEOSPORIN G.U. IRRIGANT ONE (11:30)
[2017-01-16] MEDS ORDERED: KEFZOL 1 GM/D5W 1 GM/50 ML IVPB ONE (11:31)
[2017-01-16] MEDS ORDERED: FENTANYL ONE (11:37)
[2017-01-16] MEDS ORDERED: TEGRETOL PO SCH (12:00)
[2017-01-16] MEDS ORDERED: ZOFRAN ONE (12:34)
[2017-01-16] MEDS ORDERED: NS 1,000 ML ONE (14:51)
[2017-01-16] MEDS ORDERED: OXY IR PO PRN (15:15)
[2017-01-16] MEDS ORDERED: MORPHINE IV PRN (15:15)
[2017-01-16] MEDS ORDERED: HALDOL IV PRN (15:15)
[2017-01-16] MEDS ORDERED: MILK OF MAGNESIA PO PRN (15:15)
[2017-01-16] MEDS ORDERED: ZOFRAN IV PRN (15:15)
[2017-01-16] MEDS: NS 1,000 ML IV SCH (16:15)
--- NOTE | 2017-01-16 16:32 | OPERATIVE NOTE ---
PROCEDURE DATE: 01/16/2017 PREOPERATIVE DIAGNOSIS: Right intertrochanteric/subtrochanteric femur fracture. POSTOPERATIVE DIAGNOSIS: Right intertrochanteric/subtrochanteric femur fracture. PROCEDURE PERFORMED: Right trochanteric femoral nailing. SURGEON: Carmelo Sweeney MD CROSS TIE TRAM LOADER: STEFANIA Corbett ANESTHESIA: Spinal. ESTIMATED BLOOD LOSS: 100 mL. IMPLANTS: Synthes 11 x 440 femoral nail. DISPOSITION: To PACU, hemodynamically stable. INDICATIONS FOR PROCEDURE: Ms. Carla Blue is an 86-year-old female who presented yesterday to the emergency department after a fall when she was going to get her newspaper. She was found to have an intertrochanteric/subtrochanteric femur fracture. She was admitted per the hospitalist service and made n.p.o. after midnight. I discussed with her and her family about surgical intervention. They expressed understanding and wished to proceed. DESCRIPTION OF PROCEDURE: Ms. Blue was identified in the preoperative holding area. Her right hip was marked as the correct surgical site. She was then wheeled to the operating room. She underwent spinal anesthesia on her own bed and was moved to the traction table. We got her on the traction table. All bony prominences were well padded. We put some slight traction on the right leg. The right lower extremity was then prepped with chlorhexidine gluconate scrub and then ChloraPrep and draped in the normal sterile fashion. A surgical pause was performed, where we identified the correct patient, the correct side, and the correct procedure. Preoperative antibiotics were given, which was 1 g of IV Ancef. Fluoroscopic imaging was used, which showed a displaced fracture. We pulled some traction through the bed and that actually lined up pretty well. We performed closed reduction of it. We could get it lined up really well on both AP and lateral views. At this point, we made a small incision just proximal to the greater trochanter. Dissection was carried down to the deep tissue. I got my guidewire in good position on AP and lateral views and then reamed that proximal fragment. I was then able to get my guidewire down. I manually reduced it and we reamed up to a size 12 reamer and then passed our nail down. After I got the nail down on that AP view, actually everything looked pretty good on that lateral view. That anterior spike was still kicked up a bit. We did try close reducing for quite a while and then I made a small stab incision in the anterior thigh and got all the ball spike down and was able to push that piece down and reduce it and then I got my guidewire in center-center in the head. I then put my blade up and locked it into place. It did kick back just a little bit it was a lot better than it was. Overall reduction actually looked really good at this point. I removed the outrigger at that point and got final images of the proximal femur which showed good reduction overall and good position of our hardware. I came down distally and, under perfect hooper bay technique, placed 2 interlocking screws, 1 in the dynamic hole and 1 in the static hole. Final images were taken down there. After that, then we closed the deep layer with 0 Vicryl and 2-0 Vicryl for all the subcu and radha on the skin. Adaptic, 4 x 4's, and an island dressing were placed. The patient was then taken out of traction. She was then moved from the OR bed to her own bed and taken to the PACU in stable condition. Postoperatively, the patient will be touchdown weightbearing on the right lower extremity. She will start therapy tomorrow and start Lovenox tomorrow as well. cc: MD Daquan De Anda MD
[2017-01-16] MEDS: KEFZOL 1 GM/D5W 1 GM/50 ML IVPB IV SCH (18:53)
[2017-01-16] MEDS: OXY IR PO PRN (20:57)
[2017-01-16] MEDS: ZOCOR PO SCH (20:58)
[2017-01-16] MEDS: COLACE PO SCH (21:00)
[2017-01-16] MEDS: PERIDEX MT SCH (22:00)
[2017-01-17] MEDS: KEFZOL 1 GM/D5W 1 GM/50 ML IVPB IV SCH ×2 (03:13→13:43)
[2017-01-17] MEDS: NS 1,000 ML IV SCH (03:14)
[2017-01-17] MEDS: LOVENOX SUBQ SCH (05:52)
[2017-01-17] MEDS: ZOFRAN IV PRN (05:52)
[2017-01-17] MEDS: PRILOSEC PO SCH ×2 (05:53→07:04)
[2017-01-17 06:20] LABS: AGAP 7; BUN 14 mg/dL (8-22); CALCIUM 7.4 mg/dL (8.8-10.2); CHLORIDE 94 mmol/L (98-107); COSMO 263; POTASSIUM 4.2 mmol/L (3.5-5.1); SODIUM 130 mmol/L (136-145); TCO2 29 mmol/L (25-35)
--- NOTE | 2017-01-17 07:57 | PROGRESS NOTE ---
DATE: 01/17/2017 SUBJECTIVE DATA: The patient is lying comfortably in the bed. She is in no acute distress. Says she has some tenderness in the hip. Otherwise, she has no complaints. She says she is already able to raise the leg some. OBJECTIVE DATA: Incision dressings are clean, dry, and intact. There is no drainage noted. There is no erythema around the dressing. Her leg is in the neutral position. She has no numbness or tingling. She has good sensation with light touch. She has a 2+ pedal pulse. She has fairly good range of motion. She has some tenderness with palpation over the incision. ASSESSMENT: Status post right trochanteric femoral nailing. PLAN: I think overall Ms. Blue is recovering well. She will be touchdown weightbearing for now. She will start work with physical therapy today. We will continue her Lovenox. We will start working on either getting her home with home health or into rehab. The family was still deciding what they would like to do as far as that is concerned. We will continue to follow with Ms. Blue's care. Dictated by STEFANIA Corbett for Carmelo Sweeney MD cc: STEFANIA Corbett MD Jagan Reddy, MD
[2017-01-17] MEDS ORDERED: NS 1,000 ML IV SCH (08:05)
--- NOTE | 2017-01-17 08:26 | PROGRESS NOTE ---
DATE: 01/17/2017 SUBJECTIVE: Interval history was reviewed. The patient has a hip nailing on the right side by Dr. Sweeney. Postoperative day 1, complains of nausea. Review of systems other than none reported. OBJECTIVE: On examination, afebrile. Vital Signs: Heart rate is 100, blood pressure 124 x 47, 100% oxygen. I's and O's are positive for 2 L. HEENT: Slightly facial edema noted. Neck is supple. Chest is clear to auscultation. Heart sounds are regular. Belly is soft, nontender. Good bowel sounds. Right hip is within normal limits. INVESTIGATIONS: SMA-7: Sodium 130, potassium 4.2, chloride 94. BUN 14. Creatinine 0.5, calcium 7.4. Cardiac enzymes were normal. ASSESSMENT AND PLAN: 1. Postop day 1 right hip nailing. Nausea, probably from morphine. 2. Deep venous thrombosis prophylaxis with Lovenox. 3. Check the CBC. Decrease IV fluids to 50 mL. Going for inpatient physical therapy. Continue incentive spirometry. Discussed with the family. They want to go for rehab. LEVEL OF DOCUMENTATION: 25 minutes. cc: Daquan Arizmendi MD
[2017-01-17 08:28] LABS: HEMATOCRIT 14.5 % (37.0-47.0)
[2017-01-17 08:34] LABS: HEMOGLOBIN 5.1 g/dL (12.0-16.0)
[2017-01-17] MEDS: TEGRETOL PO SCH ×3 (08:51→21:40)
[2017-01-17] MEDS: THERA M PLUS PO SCH (08:51)
[2017-01-17] MEDS: FERROUS SULFATE PO SCH (08:51)
[2017-01-17] MEDS: VITAMIN E PO SCH (08:51)
[2017-01-17] MEDS: PERIDEX MT SCH ×2 (08:51→21:39)
[2017-01-17] MEDS: TYLENOL PO SCH ×3 (08:51→23:29)
[2017-01-17] MEDS: LOPRESSOR PO SCH ×2 (08:52→21:39)
[2017-01-17] MEDS: NORVASC PO SCH (11:47)
[2017-01-17 15:30] LABS: HEMATOCRIT 18.5 % (37.0-47.0); HEMOGLOBIN 6.3 g/dL (12.0-16.0)
[2017-01-17] MEDS ORDERED: LASIX IV ONE (19:32)
[2017-01-17] MEDS: ZOCOR PO SCH (21:40)
[2017-01-17] MEDS: COLACE PO SCH (21:40)
[2017-01-18 05:44] LABS: MANUAL DIFF NEEDED? NO
[2017-01-18 05:54] LABS: BASO% 0.1 % (0.0-0.8); EOS# 0.08 X1000 (0.0-0.7); EOS% 1.1 % (0.0-10.0); HEMATOCRIT 23.4 % (37.0-47.0); HEMOGLOBIN 8.2 g/dL (12.0-16.0); IMM GRAN# 0.02 X1000 (0.0-0.04); IMM GRAN% 0.3 % (0.0-0.5); LYMPH# 1.24 X1000 (1.2-3.4); LYMPH% 16.4 % (20.5-51.1); MCH 30.3 PG (27-31); MCV 86.3 FL (81-99); MONO# 0.89 X1000 (0.11-0.59); MONO% 11.8 % (1.7-9.3); MPV 9.6 FL (7.4-10.4); NEUT% 70.3 % (42.2-75.2); PLT 139 X1000 (130-400); RBC 2.71 XMIL (4.2-5.4)
[2017-01-18] MEDS: TYLENOL PO SCH ×3 (06:22→23:36)
[2017-01-18] MEDS: PRILOSEC PO SCH (06:22)
[2017-01-18] MEDS: LOVENOX SUBQ SCH (06:22)
--- NOTE | 2017-01-18 07:26 | PROGRESS NOTE ---
DATE: 01/18/2017 SUBJECTIVE: Ms. Blue is lying in bed this morning, feeling well. She is feeling better after she had gotten her blood, and her blood count this morning had come up to 8.2 and 23.4 for hemoglobin and hematocrit. OBJECTIVE: Right lower extremity exam: Dressing is clean, dry, and intact. She is neurovascularly intact right lower extremity as well. ASSESSMENT: Status post right trochanteric femoral nailing for intertrochanteric/subtroch fracture. PLAN: I think Ms. Blue is doing better. I do want her to try to get up for all meals to the bedside chair and therapy can begin to get her up more and more, and we are going to get her Raymond catheter out today as well. If her blood level stays constant until tomorrow, then I would be okay with her being discharged tomorrow. She is touchdown weightbearing right lower extremity, and I will see her in about 2 weeks in clinic after she is discharged. cc: MD Daquan De Anda MD
[2017-01-18] MEDS: FERROUS SULFATE PO SCH (07:57)
[2017-01-18] MEDS: THERA M PLUS PO SCH (08:00)
[2017-01-18] MEDS: TEGRETOL PO SCH ×3 (08:00→21:24)
[2017-01-18] MEDS: PERIDEX MT SCH ×2 (08:00→21:23)
[2017-01-18] MEDS: VITAMIN E PO SCH (08:00)
[2017-01-18] MEDS: LOPRESSOR PO SCH ×2 (08:02→23:36)
[2017-01-18] MEDS ORDERED: LASIX IV SCH (08:15)
[2017-01-18] MEDS: NORVASC PO SCH (13:38)
[2017-01-18] MEDS: ZOCOR PO SCH (21:24)
[2017-01-18] MEDS: COLACE PO SCH (21:24)
--- NOTE | 2017-01-19 03:28 | PROGRESS NOTE ---
DATE: 01/18/2017 SUBJECTIVE: Postoperative day 3, right hip fracture. The patient had 2 units of packed RBCs. Significant drop in the hemoglobin. Right leg is swelling. IV fluids were discontinued. Raymond was discontinued. Nausea is decreased. REVIEW OF SYSTEMS: None reported. PHYSICAL EXAMINATION: Vital Signs: She is afebrile. Blood pressure is 140/53. I's and O's are - 1.2. HEENT: Within normal limits. Neck: Supple. No lymphadenopathy. Chest: Clear to auscultation. Heart: Sounds are regular. Abdomen: Belly is soft, nontender. Good bowel sounds. Extremities: Right hip diffusely swollen. INVESTIGATIONS: CBC: White cell count 7.5, hematocrit 23, platelets 139,000. ASSESSMENT AND PLAN: 1. Right hip fracture, status post nailing, day 3, complicated by acute blood loss anemia, status post 2 units of packed RBCs. We will transfuse a unit to keep the hematocrit above 25, and Lasix after transfusion. 2. Deep venous thrombosis prophylaxis with Lovenox. Continue present medical therapy. Discussed with the patient, as well as caregiver. We will keep her out of the bed. Hopefully, will be transferred to rehab on Monday and repeat the CBC in the morning. LEVEL OF DOCUMENTATION: 25 minutes. cc: Daquan Arizmendi MD
[2017-01-19 06:02] LABS: HEMATOCRIT 27.5 % (37.0-47.0); HEMOGLOBIN 9.8 g/dL (12.0-16.0)
[2017-01-19] MEDS: LOVENOX SUBQ SCH (06:11)
[2017-01-19] MEDS: PRILOSEC PO SCH (06:11)
[2017-01-19] MEDS ORDERED: INJECTAFER IV ONE (08:16)
[2017-01-19] MEDS: VITAMIN E PO SCH (09:55)
[2017-01-19] MEDS: TEGRETOL PO SCH ×3 (09:55→22:16)
[2017-01-19] MEDS: PERIDEX MT SCH ×2 (09:55→22:15)
[2017-01-19] MEDS: FERROUS SULFATE PO SCH (09:55)
[2017-01-19] MEDS: THERA M PLUS PO SCH (09:55)
[2017-01-19] MEDS: TYLENOL PO SCH ×3 (09:55→22:15)
[2017-01-19] MEDS: LOPRESSOR PO SCH ×2 (09:58→22:16)
[2017-01-19] MEDS ORDERED: INJECTAFER 750 MG in NS 250 ML IV ONE (10:00)
[2017-01-19] MEDS: NORVASC PO SCH (13:54)
--- NOTE | 2017-01-19 20:51 | PROGRESS NOTE ---
DATE: 01/19/2017 SUBJECTIVE: Status post 3 units of packed RBC. REVIEW OF SYSTEMS: None reported. No nausea. Eating very well. No chest pain , shortness of breath. PHYSICAL EXAMINATION: Vital Signs: Stable. Input and output negative -180 mL. General: Pallor is improve. Chest: Clear. Heart: Sounds are regular. Abdomen: Belly is soft, nontender. Good bowel sounds. Extremities: Edema in the right leg. INVESTIGATIONS: Hematocrit 27.5. ASSESSMENT AND PLAN: 1. Status post right hip surgery. Stable. 2. Anemia due to acute blood loss, status post 2 units of packed RBCs. We will also give iron infusion. 3. Hypertension is well controlled on metoprolol and amlodipine. 4. Out of the bed and continue prn pain as needed. 5. Deep venous thrombosis prophylaxis with Lovenox. If she is stable, will go for rehab in the morning. LEVEL OF DOCUMENTATION: 10 minutes. cc: Daquan Arizmendi MD MTDD
[2017-01-19] MEDS: ZOCOR PO SCH (22:16)
[2017-01-19] MEDS: COLACE PO SCH (22:16)
[2017-01-20] MEDS: LOVENOX SUBQ SCH (06:26)
[2017-01-20] MEDS: PRILOSEC PO SCH (06:26)
[2017-01-20] MEDS: TYLENOL PO SCH (06:26)
[2017-01-20] MEDS: THERA M PLUS PO SCH (08:17)
[2017-01-20] MEDS: PERIDEX MT SCH (08:17)
[2017-01-20] MEDS: TEGRETOL PO SCH (08:17)
[2017-01-20] MEDS: VITAMIN E PO SCH (08:17)
[2017-01-20] MEDS: LOPRESSOR PO SCH (08:17)
[2017-01-20] MEDS: FERROUS SULFATE PO SCH (08:17)
--- NOTE | 2017-01-20 09:17 | DISCHARGE SUMMARY ---
ADMISSION DATE: 01/15/2017 DISCHARGE DATE: 01/20/2017 DISCHARGING DIAGNOSIS: Right hip fracture. SECONDARY DIAGNOSES: 1. Trigeminal neuralgia on the left side. 2. History of colon cancer. 3. Hyperlipidemia. 4. Hypertension. 5. Osteoporosis. 6. Acid reflux disease due to hiatal hernia. 7. Anemia due to acute blood loss. CONSULTS: Carmelo Sweeney MD. PROCEDURES: 1. Intramedullary nailing of the right hip. 2. Transfusion of 3 units of packed RBCs. BRIEF HISTORY: Please see the H and P that was done by Dr. Sutherland. In brief, she is an 86-year- old, white female, was admitted to the hospital after she fell at home sustaining injury to the right hip. The following day, the patient was seen by Dr. Sweeney who did intramedullary nailing. Postoperative course was complicated by anemia due to acute blood loss requiring 3 units of packed RBCs and iron infusion. Rest of the hospital course was uneventful. Patient was discharged to rehab for convalescence. LABS: At the time of discharge, as follows: Hematocrit 27.5. SMA-7: Sodium 130, potassium 4.2, chloride 94, glucose 134, calcium 7.4. Urinalysis is clear. Carbamazepine level 8.1. CT head is negative. Chest x-ray, moderate-sized hiatal hernia. No evidence of acute disease. DISCHARGE MEDICATIONS: As follows: Tylenol 500 as needed for pain. Amlodipine 10 daily. Carbamazepine 200 b.i.d., 100 in the lunchtime. Colace 200 daily, Lovenox 40 subcutaneous daily for 10 days. Icar-C Plus 1 tablet daily. Multivitamin 1 tablet daily. Prilosec 20 daily. Simvastatin 20 daily, vitamin E 400 units daily. DISCHARGE INSTRUCTIONS: Recheck CBC, SMA-7 in 1 week. Follow up in my office as well as Dr. Sweeney in 2 weeks. cc: MD Carmelo Murray MD
[2017-01-20 11:24] VITALS: BP 136/53
== END 2017-01-20 12:44 ==
LOC: SUPCPDRO → ED 08:41 → 4N 11:27
PROVIDERS: ADMIT Internal Medicine; ATTEND Internal Medicine